=== PATIENT | female | born 1955 | race Two or more races ===

== ENCOUNTER 2017-11-22 15:11 | Inpatient (IN) | payer MEDICAID ==
[~2017-11-22] VITALS: Ht 177.8 cm; Wt 117.0 kg
[~2017-11-22 15:11] MED LIST: ALBUAER3 IN; ATOR20TA50 PO; BUME1TAB PO; CAR3125T PO; FAM20T PO; FURO40TA PO; HYDR10TA26 PO; IPRIH INH; LOSA50TA6 PO; OMEP20CA74 PO; ONDA4TAB5 PO; SIMV-8 PO; SULF400T11 PO
[2017-11-22 16:15] LABS: Basophils # (auto) 0 uL; Basophils % (auto) 0.3 % (0.0-2.0); Eosinophils # (auto) 0 uL; Eosinophils % (auto) 0.2 % (0.0-7.0); Hematocrit 34.8 % (36.0-46.0); Hemoglobin 10.9 g/dL (12.2-16.2); Lymphocytes # (auto) 0.3 uL; Lymphocytes % (auto) 3.7 % (10.0-50.0); Mean Corpuscular Hemoglobin 29.3 pg (28.0-32.0); Mean Corpuscular Hgb Conc. 31.3 g/dL (32.0-36.0); Mean Corpuscular Volume 93.6 fL (80.0-100.0); Monocytes # (auto) 0.7 uL; Monocytes % (auto) 9.9 % (0.0-12.0); Neutrophils % (auto) 85.9 % (37.0-80.0); Nucleated Red Blood Cells % 0.2 %; Platelet Count (auto) 198 10^3/uL (140-450); Red Blood Cells 3.72 10^6/uL (4.0-5.20); Red Cell Distribution Width 17.4 % (11.8-14.3)
[2017-11-22 16:29] LABS: INR 0.95 (0.9-1.15); Partial Thromboplastin Time 21.8 sec (22.64-33.71); Prothrombin Time 10.4 sec (9.37-12.3)
[2017-11-22 16:35] LABS: Albumin 3.2 g/dL (3.4-5.0); BUN/Creatinine Ratio 33.3; Bilirubin, Total 0.7 mg/dL (0.2-1.0); Calcium 8.6 mg/dL (8.5-10.1); Potassium 4.5 mmol/L (3.5-5.1); Total Protein 7.1 g/dL (6.4-8.2)
[2017-11-22] MEDS ORDERED: ALBUTEROL SULF 2.5 MG/0.5ML(0.5%) NEB SOLN HHN ONE (17:15)
[2017-11-22] MEDS ORDERED: IPRATROPIUM BROM 0.5 MG/2.5ML INH SOL HHN ONE (17:15)
[2017-11-22] MEDS ORDERED: ASPirin-EC 81 mg tab PO ONE (17:15)
[2017-11-22] MEDS ORDERED: cefTRIAXone 1GM/10ml IVPUSH 10 ML IV ONE (17:15)
[2017-11-22] MEDS ORDERED: methylPREDNISolone SOD SUCC 125 MG/2 ML VL IV ONE (17:15)
[2017-11-22] MEDS ORDERED: HYDROcodone-ACET 5/325MG TAB PO PRN (17:45)
[2017-11-22] MEDS ORDERED: PROMETHAZINE HCL 25 MG/ML 1ML IV PRN (17:45)
[2017-11-22] MEDS ORDERED: MORPHINE SULFATE 8mg/ml INJ SDV IV PRN ×2 (17:45)
[2017-11-22] MEDS ORDERED: DEXTROSE (50%) 50ML SYRG IV PRN (17:45)
[2017-11-22] MEDS ORDERED: LORazepam 0.5 MG TAB PO PRN (17:45)
[2017-11-22] MEDS ORDERED: ALBUTEROL SULF 2.5 MG/0.5ML(0.5%) NEB SOLN NEB PRN (17:45)
[2017-11-22] MEDS ORDERED: LACTULOSE 20Gm/30ML SOLN PO PRN (17:45)
[2017-11-22] MEDS ORDERED: hydrALAZINE HCL 10 MG TAB PO PRN (17:45)
[2017-11-22] MEDS ORDERED: NITROGLYCERIN 0.4 MG SL TAB SL PRN (17:45)
[2017-11-22] MEDS ORDERED: [UNRECOGNIZED DRUG - OTHER] PO SCH ×2 (17:45→19:45)
[2017-11-22] MEDS ORDERED: TEMAZEPAM 15 MG CAP PO PRN (17:45)
[2017-11-22] MEDS: ACCU-CHEK COMFORT CURVE STRIP VI SCH (18:37)
[2017-11-22] MEDS: BUMETANIDE 1 MG TAB PO SCH (18:44)
[2017-11-22] MEDS ORDERED: ENOXAPARIN SOD 80 MG/0.8ML SYRINGE SC ONE (18:45)
[2017-11-22] MEDS: InsuLIN REG 1unit/0.01ml Soln (100units/ml) SC SCH (18:46)
[2017-11-22] MEDS: DOXYCYCLINE HYC 100MG/250ML 250 ML IV SCH (18:59)
[2017-11-22] MEDS: ALBUTEROL SULF 2.5 MG/0.5ML(0.5%) NEB SOLN NEB SCH (19:00)
[2017-11-22] MEDS: IPRATROPIUM BROM 0.5 MG/2.5ML INH SOL NEB SCH (19:01)
[2017-11-22 19:34] VITALS: BP 170/77
[2017-11-22 19:50] VITALS: BP 150/90
[2017-11-22 20:36] LABS: Alcohol, Urine < 3.0 mg/dL (0-5); Amphetamine Screen, Urine NEGATIVE (NEGATIVE); Barbiturate Scree,Urine NEGATIVE (NEGATIVE); Benzodiazephine Screen, Urine NEGATIVE (NEGATIVE); Cannabinoid Screen, Urine NEGATIVE (NEGATIVE); Cocaine Screen, Urine NEGATIVE (NEGATIVE); Opiate Scree,Urine NEGATIVE (NEGATIVE); Phencyclidine Screen, Urine NEGATIVE (NEGATIVE)
[2017-11-22] MEDS: CARVEDILOL 3.125 MG TAB PO SCH (21:29)
[2017-11-22] MEDS: ATORVASTATIN 20 MG TAB PO SCH (21:29)
[2017-11-22] MEDS: ACETAMINOPHEN 500 MG TAB PO PRN (21:31)
[2017-11-22 23:57] VITALS: BP 126/84
[2017-11-23] MEDS: ACCU-CHEK COMFORT CURVE STRIP VI SCH ×5 (00:10→23:48)
[2017-11-23] MEDS: InsuLIN REG 1unit/0.01ml Soln (100units/ml) SC SCH ×5 (00:10→23:48)
[2017-11-23] MEDS: ALBUTEROL SULF 2.5 MG/0.5ML(0.5%) NEB SOLN NEB SCH ×4 (00:11→19:05)
[2017-11-23] MEDS: IPRATROPIUM BROM 0.5 MG/2.5ML INH SOL NEB SCH ×4 (00:11→19:05)
[2017-11-23 04:00] VITALS: BP 118/78
[2017-11-23] MEDS: DOXYCYCLINE HYC 100MG/250ML 250 ML IV SCH ×2 (05:41→17:57)
[2017-11-23 05:51] LABS: Basophils # (auto) 0 uL; Basophils % (auto) 0.2 % (0.0-2.0); Eosinophils # (auto) 0 uL; Eosinophils % (auto) 0.1 % (0.0-7.0); Hematocrit 32.9 % (36.0-46.0); Hemoglobin 10.4 g/dL (12.2-16.2); Lymphocytes # (auto) 0.3 uL; Lymphocytes % (auto) 5.8 % (10.0-50.0); Mean Corpuscular Hemoglobin 29.3 pg (28.0-32.0); Mean Corpuscular Hgb Conc. 31.6 g/dL (32.0-36.0); Mean Corpuscular Volume 92.8 fL (80.0-100.0); Monocytes # (auto) 0.1 uL; Monocytes % (auto) 2.1 % (0.0-12.0); Neutrophils # (auto) 4.2 uL; Neutrophils % (auto) 91.8 % (37.0-80.0); Nucleated Red Blood Cells % 0.1 %; Platelet Count (auto) 199 10^3/uL (140-450); Red Blood Cells 3.55 10^6/uL (4.0-5.20); Red Cell Distribution Width 17.3 % (11.8-14.3); White Blood Cell 4.6 10^3/uL (4.4-10.8)
[2017-11-23] MEDS: BUMETANIDE 1 MG TAB PO SCH ×2 (05:54→17:57)
[2017-11-23 06:15] LABS: Albumin 3.1 g/dL (3.4-5.0); BUN/Creatinine Ratio 33.6; Bilirubin, Total 0.5 mg/dL (0.2-1.0); Calcium 8.9 mg/dL (8.5-10.1); Potassium 4.6 mmol/L (3.5-5.1); Total Protein 6.8 g/dL (6.4-8.2)
[2017-11-23] MEDS: ASPirin 81 mg TAB PO SCH (09:33)
[2017-11-23] MEDS: CARVEDILOL 3.125 MG TAB PO SCH ×2 (09:34→21:09)
[2017-11-23] MEDS: LOSARTAN POTASSIUM 50 MG TAB PO SCH (09:34)
[2017-11-23] MEDS: PANTOPRAZOLE 40 MG TAB PO SCH (09:34)
[2017-11-23] MEDS: ENOXAPARIN SOD 40 MG/0.4 ML SYRINGE SC SCH (09:35)
[2017-11-23] MEDS: FUROSEMIDE 40 MG TAB PO SCH (09:35)
[2017-11-23] MEDS ORDERED: PATIENTS OWN MEDICATION (Simvastatin 20 MG) PO SCH (10:00)
[2017-11-23] MEDS ORDERED: SULFAMETHOX W/TRIMETH(800/160MG) DS TAB PO SCH (10:00)
[2017-11-23 11:50] VITALS: BP 127/67
[2017-11-23 15:50] VITALS: BP 121/72
[2017-11-23 19:50] VITALS: BP 107/68
[2017-11-23] MEDS: ATORVASTATIN 20 MG TAB PO SCH (21:08)
[2017-11-23] MEDS: ACETAMINOPHEN 500 MG TAB PO PRN (21:12)
[2017-11-23 23:55] VITALS: BP 131/76
[2017-11-24] MEDS: IPRATROPIUM BROM 0.5 MG/2.5ML INH SOL NEB SCH ×4 (00:44→18:33)
[2017-11-24] MEDS: ALBUTEROL SULF 2.5 MG/0.5ML(0.5%) NEB SOLN NEB SCH ×4 (00:44→18:33)
[2017-11-24 04:00] VITALS: BP 130/71
[2017-11-24] MEDS: DOXYCYCLINE HYC 100MG/250ML 250 ML IV SCH ×2 (05:05→17:19)
[2017-11-24] MEDS: InsuLIN REG 1unit/0.01ml Soln (100units/ml) SC SCH ×3 (06:00→18:00)
[2017-11-24] MEDS: ACCU-CHEK COMFORT CURVE STRIP VI SCH ×3 (06:29→18:06)
[2017-11-24] MEDS: BUMETANIDE 1 MG TAB PO SCH (06:30)
[2017-11-24 08:00] VITALS: BP 104/77
[2017-11-24] MEDS: ASPirin 81 mg TAB PO SCH (10:41)
[2017-11-24] MEDS: PANTOPRAZOLE 40 MG TAB PO SCH (10:42)
[2017-11-24] MEDS: LOSARTAN POTASSIUM 50 MG TAB PO SCH (10:42)
[2017-11-24] MEDS: FUROSEMIDE 40 MG TAB PO SCH (10:42)
[2017-11-24] MEDS: ENOXAPARIN SOD 40 MG/0.4 ML SYRINGE SC SCH (10:43)
[2017-11-24] MEDS: CARVEDILOL 3.125 MG TAB PO SCH ×2 (10:43→21:48)
[2017-11-24 11:50] VITALS: BP 100/74
[2017-11-24 13:54] LABS: Protein, Urine 9.4 mg/dL (0.0-11.9)
[2017-11-24 15:48] VITALS: BP 108/62
[2017-11-24] MEDS: FUROSEMIDE 100 MG/10ML VIAL IV SCH ×2 (16:53→17:58)
[2017-11-24 20:15] LABS: Free T4 (Free Thyroxine) 1.37 ng/dL (0.89-1.76)
[2017-11-24 20:16] LABS: Free T3 2.04 pg/mL (2.3-4.2)
[2017-11-24] MEDS: ATORVASTATIN 20 MG TAB PO SCH (21:49)
[2017-11-24 22:00] VITALS: BP 101/62
[2017-11-25] MEDS: ACCU-CHEK COMFORT CURVE STRIP VI SCH ×4 (00:17→18:55)
[2017-11-25] MEDS: ACETAMINOPHEN 500 MG TAB PO PRN (01:54)
[2017-11-25 05:00] VITALS: BP 119/63
[2017-11-25] MEDS: FUROSEMIDE 100 MG/10ML VIAL IV SCH ×2 (05:37→18:56)
[2017-11-25] MEDS: DOXYCYCLINE HYC 100MG/250ML 250 ML IV SCH (05:40)
[2017-11-25] MEDS: InsuLIN REG 1unit/0.01ml Soln (100units/ml) SC SCH ×4 (05:58→18:55)
[2017-11-25 07:18] LABS: Albumin 3.2 g/dL (3.4-5.0); BUN/Creatinine Ratio 28.4; Bilirubin, Total 0.6 mg/dL (0.2-1.0); Phosphorus 4.5 mg/dL (2.5-4.90); Total Protein 6.9 g/dL (6.4-8.2); Uric Acid 11.4 mg/dL (2.6-6.0)
[2017-11-25] MEDS: ALBUTEROL SULF 2.5 MG/0.5ML(0.5%) NEB SOLN NEB SCH ×4 (07:29→19:42)
[2017-11-25] MEDS: IPRATROPIUM BROM 0.5 MG/2.5ML INH SOL NEB SCH ×4 (07:30→19:42)
[2017-11-25 08:21] VITALS: BP 132/71
[2017-11-25] MEDS: PANTOPRAZOLE 40 MG TAB PO SCH (10:18)
[2017-11-25] MEDS: ENOXAPARIN SOD 40 MG/0.4 ML SYRINGE SC SCH (10:18)
[2017-11-25] MEDS: ASPirin 81 mg TAB PO SCH (10:18)
[2017-11-25] MEDS: CARVEDILOL 3.125 MG TAB PO SCH ×2 (10:19→22:19)
[2017-11-25] MEDS: NICOTINE 14 MG/24HR TOPICAL PATCH TD SCH (10:19)
[2017-11-25] MEDS: LOSARTAN POTASSIUM 50 MG TAB PO SCH (10:20)
[2017-11-25 12:55] VITALS: BP 137/90
[2017-11-25 16:59] VITALS: BP 122/69
[2017-11-25 20:52] VITALS: BP 122/69
[2017-11-25 22:00] VITALS: BP 104/64
[2017-11-25] MEDS: ATORVASTATIN 20 MG TAB PO SCH (22:18)
[2017-11-25] MEDS: DOXYCYCLINE 100 MG TAB/CAP PO SCH (22:19)
[2017-11-26] MEDS: ACCU-CHEK COMFORT CURVE STRIP VI SCH ×5 (00:08→23:53)
[2017-11-26] MEDS: IPRATROPIUM BROM 0.5 MG/2.5ML INH SOL NEB SCH ×3 (00:55→19:02)
[2017-11-26] MEDS: ALBUTEROL SULF 2.5 MG/0.5ML(0.5%) NEB SOLN NEB SCH ×3 (00:55→19:02)
[2017-11-26 05:00] VITALS: BP 115/70
[2017-11-26] MEDS: InsuLIN REG 1unit/0.01ml Soln (100units/ml) SC SCH ×5 (06:00→23:53)
[2017-11-26] MEDS: FUROSEMIDE 100 MG/10ML VIAL IV SCH ×2 (06:03→17:36)
[2017-11-26 06:33] LABS: Basophils # (auto) 0 uL; Basophils % (auto) 0.9 % (0.0-2.0); Eosinophils # (auto) 0.1 uL; Eosinophils % (auto) 1.3 % (0.0-7.0); Hematocrit 34.4 % (36.0-46.0); Lymphocytes # (auto) 0.5 uL; Lymphocytes % (auto) 9.9 % (10.0-50.0); Mean Corpuscular Hemoglobin 29.3 pg (28.0-32.0); Mean Corpuscular Hgb Conc. 31.9 g/dL (32.0-36.0); Mean Corpuscular Volume 91.9 fL (80.0-100.0); Monocytes # (auto) 0.7 uL; Monocytes % (auto) 14.7 % (0.0-12.0); Neutrophils # (auto) 3.7 uL; Neutrophils % (auto) 73.2 % (37.0-80.0); Nucleated Red Blood Cells % 0.1 %; Platelet Count (auto) 191 10^3/uL (140-450); Red Blood Cells 3.75 10^6/uL (4.0-5.20)
[2017-11-26] MEDS: LEVOTHYROXINE SODIUM 25 MCG TAB PO SCH (06:38)
[2017-11-26 06:58] LABS: Albumin 2.9 g/dL (3.4-5.0); Bilirubin, Total 0.6 mg/dL (0.2-1.0); Calcium 9.1 mg/dL (8.5-10.1); Potassium 3.9 mmol/L (3.5-5.1); Total Protein 6.4 g/dL (6.4-8.2)
[2017-11-26 08:18] VITALS: BP 124/93
[2017-11-26] MEDS: ENOXAPARIN SOD 40 MG/0.4 ML SYRINGE SC SCH (10:07)
[2017-11-26] MEDS: LOSARTAN POTASSIUM 50 MG TAB PO SCH (10:08)
[2017-11-26] MEDS: CARVEDILOL 3.125 MG TAB PO SCH ×2 (10:08→21:50)
[2017-11-26] MEDS: DOXYCYCLINE 100 MG TAB/CAP PO SCH ×2 (10:08→21:49)
[2017-11-26] MEDS: ASPirin 81 mg TAB PO SCH (10:09)
[2017-11-26] MEDS: NICOTINE 14 MG/24HR TOPICAL PATCH TD SCH (10:09)
[2017-11-26] MEDS: PANTOPRAZOLE 40 MG TAB PO SCH (10:09)
[2017-11-26 10:18] LABS: Hepatitis B Surface Antigen Negative (Negative)
[2017-11-26 10:56] LABS: Hepatitis C Antibody Negative (Negative)
[2017-11-26 13:45] VITALS: BP 117/71
[2017-11-26 16:59] VITALS: BP 126/88
[2017-11-26] MEDS: ATORVASTATIN 20 MG TAB PO SCH (21:49)
[2017-11-26 21:52] VITALS: BP 99/48
[2017-11-26] MEDS: ACETAMINOPHEN 500 MG TAB PO PRN (23:52)
[2017-11-27] MEDS: ALBUTEROL SULF 2.5 MG/0.5ML(0.5%) NEB SOLN NEB SCH ×3 (00:43→11:41)
[2017-11-27] MEDS: IPRATROPIUM BROM 0.5 MG/2.5ML INH SOL NEB SCH ×3 (00:43→11:40)
[2017-11-27 05:00] VITALS: BP 101/67
[2017-11-27] MEDS: LEVOTHYROXINE SODIUM 25 MCG TAB PO SCH (05:45)
[2017-11-27] MEDS: FUROSEMIDE 100 MG/10ML VIAL IV SCH (05:45)
[2017-11-27] MEDS: ACCU-CHEK COMFORT CURVE STRIP VI SCH ×3 (05:45→12:38)
[2017-11-27] MEDS: InsuLIN REG 1unit/0.01ml Soln (100units/ml) SC SCH ×2 (06:00→12:00)
[2017-11-27 06:43] LABS: BUN/Creatinine Ratio 27.8; Calcium 9.3 mg/dL (8.5-10.1); Potassium 4.1 mmol/L (3.5-5.1)
[2017-11-27 06:46] LABS: Total Protein 7.2 g/dL (6.4-8.2)
[2017-11-27 06:52] LABS: Bilirubin, Total 0.8 mg/dL (0.2-1.0)
[2017-11-27 08:38] VITALS: BP 128/70
[2017-11-27] MEDS: ENOXAPARIN SOD 40 MG/0.4 ML SYRINGE SC SCH (10:00)
[2017-11-27] MEDS: DOXYCYCLINE 100 MG TAB/CAP PO SCH (10:26)
[2017-11-27] MEDS: ASPirin 81 mg TAB PO SCH (10:26)
[2017-11-27] MEDS: PANTOPRAZOLE 40 MG TAB PO SCH (10:26)
[2017-11-27] MEDS: CARVEDILOL 3.125 MG TAB PO SCH (10:27)
[2017-11-27] MEDS: LOSARTAN POTASSIUM 50 MG TAB PO SCH (10:27)
[2017-11-27] MEDS: NICOTINE 14 MG/24HR TOPICAL PATCH TD SCH (10:28)
[2017-11-27 12:09] VITALS: BP 120/61
[2017-11-27 16:48] VITALS: BP 92/45
[2017-11-27] MEDS ORDERED: FUROSEMIDE 40 MG TAB PO SCH (18:00)
== END 2017-11-27 18:39 | disposition home or self-care (01) | DRG 469 ==
LOC: EDBD 15:11 → ER 15:13 → OVERFLOW 15:14 → DOU IN ICU 19:42 → TELE-WESTW 11-24 17:16
PROVIDERS: ADMIT Internal Medicine; ATTEND Internal Medicine Pulmonary Disease
PROC: 5A09357 Assistance with Respiratory Ventilation, Less than 24 Consecutive Hours, Continuous Positive Airway Pressure (ICD-10-PCS; principal; 2017-11-22)
DX: N17.0 Acute kidney failure with tubular necrosis (principal); J96.22 Acute and chronic respiratory failure with hypercapnia; I50.43 Acute on chronic combined systolic (congestive) and diastolic (congestive) heart failure; E87.4 Mixed disorder of acid-base balance; E11.22 Type 2 diabetes mellitus with diabetic chronic kidney disease; I95.9 Hypotension, unspecified; I27.29 Other secondary pulmonary hypertension; I13.0 Hypertensive heart and chronic kidney disease with heart failure and stage 1 through stage 4 chronic kidney disease, or unspecified chronic kidney disease; E11.65 Type 2 diabetes mellitus with hyperglycemia; E44.1 Mild protein-calorie malnutrition; N18.4 Chronic kidney disease, stage 4 (severe); E66.01 Morbid (severe) obesity due to excess calories; J44.1 Chronic obstructive pulmonary disease with (acute) exacerbation; G47.33 Obstructive sleep apnea (adult) (pediatric); M19.90 Unspecified osteoarthritis, unspecified site; E03.9 Hypothyroidism, unspecified; R74.8 Abnormal levels of other serum enzymes; R79.89 Other specified abnormal findings of blood chemistry; D64.9 Anemia, unspecified; K21.9 Gastro-esophageal reflux disease without esophagitis; R79.1 Abnormal coagulation profile; Z80.3 Family history of malignant neoplasm of breast; Z87.891 Personal history of nicotine dependence; Z99.81 Dependence on supplemental oxygen; Z88.5 Allergy status to narcotic agent; Z68.37 Body mass index [BMI] 37.0-37.9, adult; Z71.89 Other specified counseling; Z95.4 Presence of other heart-valve replacement; Z22.322 Carrier or suspected carrier of Methicillin resistant Staphylococcus aureus
CPT/HCPCS: 36415; 36600; 71045; 76705; 76775; 80053; 80061; 80307; 82306; 82550; 82570; 82805; 82962; 83036; 83735; 83880; 83970; 84100; 84156; 84300; 84439; 84443; 84481; 84484; 84550; 85025; 85379; 85610; 85652; 85730; 86141; 86803; 87070; 87077; 87081; 87186; 87205; 87340; 93005; 93971; 94640; 94660; 94761; 96372; 96374; 96375; J1815; J3490

== ENCOUNTER 2020-08-07 13:22 | Emergency (ER) | payer OTHER, MEDICAID ==
[~2020-08-07] VITALS: Ht 177.8 cm; Wt 120.2 kg
[~2020-08-07 13:22] MED LIST changes: -ALBUAER3 IN; +ASPI-543 PO; -BUME1TAB PO; +BUME1TAB26 PO; +CHOL500023 PO; +DOCU250C3 PO; -FAM20T PO; +FERR-20 PO; +FLUT100M IN; -FURO40TA PO; +HYDR-4833 PO; +INSDRIP IV; +INSLANTI SC; +IPRA0.00 IN; +LEVO25TA49 PO; -LOSA50TA6 PO; +METO2.5T11 PO; +NIC21P TOP; -OMEP20CA74 PO; -ONDA4TAB5 PO; +PANT40TA2 PO; +POTA-220 PO; +PRED1PAK10 PO; -SIMV-8 PO; -SULF400T11 PO; +TEMA15CA91 PO
[2020-08-07 14:39] VITALS: BP 146/102
[2020-08-07] MEDS ORDERED: HYDROcodone-ACET 10/325MG TAB PO ONE (15:00)
== END 2020-08-07 15:24 | disposition home or self-care (01) ==
LOC: ER 13:22
DX: S00.93XA Contusion of unspecified part of head, initial encounter (principal); R68.84 Jaw pain; W19.XXXA Unspecified fall, initial encounter; Y93.89 Activity, other specified; Y92.89 Other specified places as the place of occurrence of the external cause; Y99.8 Other external cause status; J44.9 Chronic obstructive pulmonary disease, unspecified; K21.9 Gastro-esophageal reflux disease without esophagitis; I50.9 Heart failure, unspecified; Z79.899 Other long term (current) drug therapy; Z79.82 Long term (current) use of aspirin; Z88.6 Allergy status to analgesic agent